=== PATIENT | female | born 1975 | race Caucasian/White ===

== ENCOUNTER 2018-10-31 11:01 | Day surgery (SDC) | payer OTHER ==
[2018-10-31 11:33] LABS: HCG UR QUAL NEGATIVE
[2018-10-31] MEDS ORDERED: LACTATED RINGERS 1,000 ML IV ONE ×2 (11:45→13:51)
--- NOTE | 2018-10-31 11:53 | ANESTHESIA ---
Pre-Anesthesia VS, & Labs - NPO >8 hours - Is Patient ?: No <Massiel Long - Last Filed: 10/31/18 11:51> - Diagnosis endometriosis (Massiel Long) - Procedure hysteroscopy, myosure abation, placement of mirena ring (Massiel Long) Vital Signs: Temp Pulse Resp BP Pulse Ox 36.4 C L 58 L 18 148/78 H 100 10/31/18 11:23 10/31/18 11:23 10/31/18 11:23 10/31/18 11:23 10/31/18 11:23 Height 5 ft 8 in Weight (kg) 75.75 kg Home Medications and Allergies <Massiel Long - Last Filed: 10/31/18 11:51> <Yeimy Pérez - Last Filed: 10/31/18 12:30> Home Medications: Ambulatory Orders Calcium Carbonate [Calcium] 600 mg PO 10/18/18 Citalopram [CeleXA] 10 mg PO DAILY 10/18/18 Clobetasol Propionate/Emoll [Clobetasol Emollient 0.05% Crm] 15 gm TP 10/18/18 Lactobacillus Acidophilus [Probiotic Acidophilus] 1 each PO 10/18/18 Multivitamin [One Daily Multivitamin] 1 each PO 10/18/18 Calcium Carbonate [Calcium] 600 mg PO 10/18/18 Citalopram [CeleXA] 10 mg PO DAILY 10/18/18 Clobetasol Propionate/Emoll [Clobetasol Emollient 0.05% Crm] 15 gm TP 10/18/18 Lactobacillus Acidophilus [Probiotic Acidophilus] 1 each PO 10/18/18 Multivitamin [One Daily Multivitamin] 1 each PO 10/18/18 Allergies/Adverse Reactions: Allergies Allergy/AdvReac Type Severity Reaction Status Date / Time NSAIDS (Non-Steroidal AdvReac Intermediate Unknown Verified 10/18/18 09:07 Anti-Inflamma Anes History & Medical History - Anesthetic History Anesthesia Complications: reports: Post-Operative Nausea/Vomiting - Medical History Cardiovascular: reports: None Pulmonary: reports: None Gastrointestinal: reports: Other Urinary: reports: Other Musculoskeletal: reports: None Endocrine/Autoimmune: reports: None Skin: reports: None Smoking Status: Former smoker - Surgical History General: Other (gastric sleave) <Massiel Long - Last Filed: 10/31/18 11:51> - Medical History Gastrointestinal: reports: Other (s/p gastric sleeve) Neuro: reports: None Blood Disorders: reports: None Smoking Status: Former smoker (quit 20 years ago) Psychosocial: reports: Depression, Alcohol (1 glass of wine per night) <Yeimy Pérez - Last Filed: 10/31/18 12:30> Exam General: Alert Dental: WNL Mallampati classification: II Respiratory: Lungs clear Cardiovascular: Regular rate <Massiel Long - Last Filed: 10/31/18 11:51> Mouth Openin Fingerbreadth Neck Mobility: Normal Respiratory: Lungs clear, Normal breath sounds, No respiratory distress, No accessory muscle use Cardiovascular: Regular rate, Normal S1, Normal S2, No murmurs Mental/Cognitive Status: Alert/Oriented X3, Normal for patient <Yeimy Pérez - Last Filed: 10/31/18 12:30> Plan Anesthesia Type: General Consent for Procedure(s) Verified and Reviewed: Yes Code Status: Attempt Resuscitation ASA classification: 2-Mild systemic disease Is this case an emergency?: No <Yeimy Pérez - Last Filed: 10/31/18 12:30>
[2018-10-31] MEDS ORDERED: LIDOCAINE-MPF 1% 30 ML VIAL ONE (13:04)
[2018-10-31] MEDS ORDERED: LIDOCAINE 1% 50 ML MDV SUBQ ONE (13:30)
[2018-10-31] MEDS ORDERED: LEVONORGESTREL 1 EACH IUD IY ONE (13:39)
[2018-10-31] MEDS ORDERED: ONDANSETRON 4 MG/2 ML VIAL IVP ONE (13:56)
[2018-10-31] MEDS ORDERED: GLYCOPYRROLATE 1 MG/5 ML VIAL IVP ONE (13:56)
[2018-10-31] MEDS ORDERED: PROPOFOL 200 MG/20 ML VIAL IVP ONE (13:56)
[2018-10-31] MEDS ORDERED: fentaNYL 100 MCG/2 ML VIAL IVP ONE (13:56)
[2018-10-31] MEDS ORDERED: KETOROLAC 30 MG/ML VIAL IVP ONE (13:56)
[2018-10-31] MEDS ORDERED: DEXAMETHASONE 4 MG/ML VIAL IVP ONE (13:56)
[2018-10-31] MEDS ORDERED: MIDAZOLAM 2 MG/2 ML VIAL IVP ONE (13:56)
[2018-10-31] MEDS ORDERED: HYDROcod/ACETAM 10 MG/325 MG TABLET PO PRN (14:13)
--- NOTE | 2018-10-31 14:16 | OPERATIVE REPORT ---
Operative Report - General Planned Procedure: Hysteroscopy with MyoSure Placement of Mirena intrauterine system Pre-Op Diagnosis: Endometrial polyp Procedure Performed: Same Post Op Diagnosis: Same - Procedure Note Primary Surgeon: Ron Anesthesia Provider: Elisa Anesthesia Technique: General LMA Pathology: Endocervical and endometrial curettings Estimated Blood Loss (mL): 10 Indications: Endometrial polyp - Other Other Information/Narrative: The patient was brought to the operating room where she was placed supine on the operating table and given general oroendotracheal anesthesia. She was then placed in low lithotomy stirrups and prepped and draped in the usual sterile fashion. A time-out was performed. An exam under anesthesia showed the uterus to be normal size and anteverted. The adnexa were benign. A speculum was placed in the patient's vagina and 20 ml of 1% lidocaine was injected in a paracervical block. A single tooth tenaculum was applied. The uterus sounded to 8 cm. The cervix was dilated to a #8 Hegar dilator. Endocervical curettings were obtained on a Telfa pad. A 0 degree hysteroscope was inserted into the uterine cavity. A Myosure Lite was used to remove the polyp and do a general curettage. When curettage was judged adequate, a Mirena IUS was placed and the string shortened to 3 cm. Instruments were removed from the vagina and the patient was taken to the recovery room in stable condition.
[2018-10-31 14:51] VITALS: BP 135/85
== END 2018-10-31 11:02 | disposition home or self-care (01) ==
LOC: SDS 11:01
PROVIDERS: ATTEND Obstetrics & Gynecology
PROC: 0UDB8ZZ Extraction of Endometrium, Via Natural or Artificial Opening Endoscopic (ICD-10-PCS; 2018-10-31)
PROC: 0UBC7ZZ Excision of Cervix, Via Natural or Artificial Opening (ICD-10-PCS; 2018-10-31)
PROC: 0UH97HZ Insertion of Contraceptive Device into Uterus, Via Natural or Artificial Opening (ICD-10-PCS; 2018-10-31)
PROC: 0UB98ZZ Excision of Uterus, Via Natural or Artificial Opening Endoscopic (ICD-10-PCS; principal; 2018-10-31 12:30)
DX: N84.0 Polyp of corpus uteri (principal); Z30.430 Encounter for insertion of intrauterine contraceptive device; N92.1 Excessive and frequent menstruation with irregular cycle; N94.10 Unspecified dyspareunia; Z86.39 Personal history of other endocrine, nutritional and metabolic disease; Z90.3 Acquired absence of stomach [part of]; Z87.891 Personal history of nicotine dependence
CPT/HCPCS: 58300; 58558; 81025; A9270; J7120; J7298